=== PATIENT | female | born 1990 | race African-American/Black ===

== ENCOUNTER 2016-11-02 20:01 | Emergency (ER) | payer OTHER ==
--- NOTE | ~2016-11-02 | EKG ---
PATIENT: AVNI PRASAD UNIT #: [id number] Ventricular Rate: 70 BPM Atrial Rate: 70 BPM P-R Interval: 164 ms QRS Duration: 84 ms Q-T Interval: 380 ms QTC Calculation(Bezet): 410 ms P [place]: 62 degrees Calculated R [place]: 28 degrees Calculated T [place]: 21 degrees Diagnosis Line: Normal sinus rhythm Diagnosis Line: Possible Left atrial enlargement Diagnosis Line: Nonspecific T wave abnormality Diagnosis Line: Abnormal ECG Diagnosis Line: Diagnosis Line: Confirmed by JA HERNANDEZ MD ([id number]) on Diagnosis Line: 11/04/2016 1:16:02 PM INTERPRETING MD: CARISA
--- NOTE | ~2016-11-02 | CR72 ---
[facility] A Service of [facility] & [facility] RADIOLOGY TEXT RESULTS PATIENT: AVNI PRASAD LOCATION: [facility] : [birth year] UNIT #: [id number] AGE: [address]: Katlin Giraldo MD SEX: F ORDER DR: [id number] [facility] [address] [place], [place] [address] [id number] E MR#: [id number] Acc #: [id number] NAME: AVNI PRASAD : 1990 SEX: F STUDY DATE/TIME: 11/02/2016 21:17 UNIT: [facility] ROOM: STUDY DESCRIPTION: CR Chest Single View Portable Attending Physician: Katlin Giraldo M.D. Ordering Physician: Katlin Giraldo M.D. Primary Care Physician: Generic Doctor Not In System MEDICAL IMAGING REPORT This report is preliminary unless electronic signature is present EXAM Portable chest. HISTORY Right-sided rib pain, anxiety, lightheadedness for 5 days. FINDINGS AP portable view is obtained. The cardiovascular configuration is normal and the lungs are clear. CONCLUSION Negative portable chest. Dictated by... Jamal Perez M.D. THIS IS AN ELECTRONICALLY VERIFIED REPORT Jamal Perez M.D. at 11/03/2016 6:08 PM Nani TD: 11/03/2016 06:57 JOB #: [id number] MEDICAL IMAGING REPORT Page 1 of 1 COPY
[~2016-11-02 20:01] MED LIST: MACROBID 100 M100 MG PO; PHENERGAN PO; PRENATAL VITAMI1 TA3 PO
[2016-11-02 20:41] LABS: URINE SOURCE CLEAN CATCH
[2016-11-02 20:46] LABS: URINE APPEARANCE CLEAR; URINE BILIRUBIN NEG (NEG); URINE BLOOD NEG (NEG); URINE COLOR YELLOW; URINE GLUCOSE NEG (NEG); URINE KETONE NEG (NEG); URINE LEUKOCYTE ESTERASE TRACE (NEG); URINE NITRATE NEG (NEG); URINE PH 6.5 (5-8); URINE PROTEIN NEG (NEG); URINE SPECIFIC GRAVITY 1.022 (1.003-1.035)
[2016-11-02 20:49] LABS: CULTURE INDICATED? YES; URBCS1 AUWI 0-2 /[HPF] (0-2); URINE BACTERIA AUWI NEG (NEGATIVE); URINE SQUAMOUS EPITHELIAL CELL OCC /[HPF]
[2016-11-02 21:04] LABS: BASOPHIL# 0.1 X10e3 (0-0.3); BASOPHIL% 0.8 % (0-2.5); EOSINOPHIL% 0.5 % (0.0-7.0); HEMATOCRIT 37.5 % (35.0-45.0); HEMOGLOBIN 12.6 gm/dL (12.0-16.0); LYMPHOCYTE# 2.1 X10e3 (1.0-3.5); LYMPHOCYTE% 24.4 % (17.0-45.0); MEAN CELL VOLUME 92.9 FL (83-96); MEAN CORPUSCULAR HEMOGLOBIN 31.2 PG (28-34); MEAN CORPUSCULAR HGB CONC 33.6 g/dL (30-36); MEAN PLATELET VOLUME 9.2 FL (6.5-11.5); MONOCYTE# 0.7 X10e3 (0-1.0); MONOCYTE% 8.4 % (3.0-12.0); NEUTROPHIL# 5.7 X10e3 (1.5-7.1); NEUTROPHIL% 65.9 % (40-75); PLATELET COUNT 231 X10e3 (140-420); RED BLOOD COUNT 4.03 X10e (3.90-5.30); RED CELL DISTRIBUTION WIDTH 12.1 % (11.0-15.5); WHITE BLOOD COUNT 8.7 X10e3 (4.0-10.5)
[2016-11-02 21:05] LABS: DIFF IND NO
[2016-11-02 21:34] LABS: ALKALINE PHOSPHATASE 71 U/L (32-92); ALT (SGPT) 12 U/L (10-40); AST (SGOT) 14 U/L (10-42); BILIRUBIN,TOTAL 0.3 mg/dL (0.2-2.0); BLOOD UREA NITROGEN 9 mg/dL (9-23); CALCIUM SERUM 8.8 mg/dL (8.4-10.2); CARBON DIOXIDE 28 mmol/L (22-31); CHLORIDE 109 mmol/L (100-111); CREATININE SERUM 0.5 mg/dL (0.6-1.4); GLOM FILT RATE Estimated 154.8 mL/min (>60); GLUCOSE FASTING 100 mg/dL (70-110); POTASSIUM 3.6 mmol/L (3.5-5.1); PROTEIN TOTAL SERUM 6.9 g/dL (6.0-8.3); SODIUM 142 mmol/L (135-145)
[2016-11-02 21:37] LABS: BILIRUBIN, DIRECT <0.1 mg/dL (0.0-0.2); BILIRUBIN,INDIRECT 0.2 mg/dL (0.0-0.9)
== END 2016-11-02 22:00 | disposition home or self-care (01) ==
LOC: CED 20:01
PROVIDERS: Emergency Medicine
DX: R55 Syncope and collapse (principal); R07.81 Pleurodynia; F41.9 Anxiety disorder, unspecified; R53.1 Weakness; J45.909 Unspecified asthma, uncomplicated
CPT/HCPCS: 36415; 71010; 80048; 80076; 81003; 82947; 84703; 85025; 85379; 87086; 93005; 99284; J1885